=== PATIENT | female | born 1995 | race Caucasian/White ===

== ENCOUNTER 2019-02-13 11:25 | Emergency (ER) | payer OTHER ==
[2019-02-13 12:11] VITALS: BP 108/70; PULSE 89; TEMP 98.5; BMI 23.5
--- NOTE | 2019-02-13 12:12 | PDOC ---
Rapid Medical Evaluation Time Seen by Provider: 02/13/19 12:06 Medical Evaluation: Allergies Allergy/AdvReac Type Severity Reaction Status Date / Time No Known Drug Allergies Allergy Verified 06/15/16 17:21 NUTS Allergy Swelling Uncoded 06/15/16 15:37 02/13/19 12:06 I have performed a brief in-person evaluation of this patient. The patient presents with a chief complaint of: epigastric pain since this morning, 4 episodes of vomiting Pertinent physical exam findings: NAD, mild tenderness to epigastrum I have ordered the following: labs, urine The patient will proceed to the ED for further evaluation.
--- NOTE | 2019-02-13 13:35 | PDOC ---
History of Present Illness - General Chief Complaint: Pain, Acute Stated Complaint: ABD PAIN/VOMITING Time Seen by Provider: 02/13/19 12:06 History Source: Patient Exam Limitations: No Limitations - History of Present Illness Initial Comments: 02/13/19 13:28 24 yo female pmh of IBS, gastritis, ovarian cysts and questionable hx of Crohns (states GI told her she may have beginning stages of Crohns after EGD and colonoscopy in [facility]) presents to the ED with epigastric pain radiating to the back and 4 episodes of non bloody non bilious vomiting. Pt states s/s started suddenly this am, severe, intermittent, described as sharp and stabbing with pain straight through to her back. Pt tried nexium at home without improvement. Pt also admits to bilateral lower quadrant abdominal pain and loose stools without blood. Denies recent travel, eating new foods, sick contacts, F/C, changes in urinary habits, CP, SOB. Last menstrual period 01/25, (IUD in place) no hx of STDs, denies vaginal discharge. Past History - Past Medical History Allergies/Adverse Reactions: Allergies Allergy/AdvReac Type Severity Reaction Status Date / Time No Known Drug Allergies Allergy Verified 06/15/16 17:21 NUTS Allergy Swelling Uncoded 06/15/16 15:37 Home Medications: Ambulatory Orders Levofloxacin [Levaquin] 500 mg PO DAILY #10 tablet 06/15/16 Anemia: Yes Asthma: Yes COPD: No GI Disorders: Yes (GASTRITIS) - Immunization History Immunization Up to Date: No - Suicide/Smoking/Psychosocial Hx Smoking History: Never smoked Hx Alcohol Use: No Drug/Substance Use Hx: No Substance Use Type: None Review of Systems - Review of Systems Constitutional: No: Chills, Fever, Weakness Respiratory: No: Shortness of Breath Cardiac (ROS): No: Chest Pain, Edema ABD/GI: Yes: Diarrhea, Nausea, Vomiting, Abdominal cramping, Other (epigastric pain radiating to her back). No: Constipated *Physical Exam - Vital Signs Last Vital Signs Temp Pulse Resp BP Pulse Ox 98.5 F 89 18 108/70 99 02/13/19 12:06 02/13/19 12:06 02/13/19 12:06 02/13/19 12:06 02/13/19 12:06 ED Treatment Course - LABORATORY CBC & Chemistry Diagram: 02/13/19 14:23 02/13/19 14:23 *DC/Admit/Observation/Transfer Diagnosis at time of Disposition: Abdominal pain - Discharge Dispostion Disposition: AGAINST MEDICAL ADVICE Condition at time of disposition: Stable Decision to Admit order: No - Referrals - Patient Instructions Printed Discharge Instructions: DI for Abdominal Pain-Adult Additional Instructions: Please see your Primary Doctor tomorrow. This can potentially be early signs of an infection including but not limited to appendicitis. Return to the ER for new or concerning symptoms including but not limited to: high fevers, severe abdominal pain, continued nausea. Thank you - Post Discharge Activity
[2019-02-13] MEDS ORDERED: FAMOTIDINE 20 MG/50 ML IVPB 20 MG/50 ML MG IVPB ONE ×2 (13:36→13:50)
[2019-02-13] MEDS ORDERED: ONDANSETRON 4 MG/2 ML VIAL IVPUSH ONE (13:36)
[2019-02-13] MEDS ORDERED: SODIUM CHLORIDE 1,000 ML IV STA (13:36)
[2019-02-13] MEDS ORDERED: ONDANSETRON 4 MG/2 ML VIAL ONE (13:50)
[2019-02-13 14:31] LABS: BASO % 0.4 % (0-2.0); EOS % 9.2 % (0-4.5); HEMATOCRIT 40.9 % (32.4-45.2); HEMOGLOBIN 12.9 GM/dL (10.7-15.3); LYMPH % 16.9 % (8-40); MCH 23.8 pg (25.7-33.7); MCHC 31.6 g/dl (32.0-36.0); MEAN CELL VOLUME 75.4 fl (80-96); MEAN PLT VOLUME 9.1 fl (7.5-11.1); MONO % 6.2 % (3.8-10.2); NEUT % 67.3 % (42.8-82.8); PLATELET COUNT 260 K/MM3 (134-434); RBC 5.42 M/mm3 (3.60-5.2); RDW 16.2 % (11.6-15.6); WHITE BLOOD COUNT 16.7 K/mm3 (4.0-10.0)
[2019-02-13 14:34] LABS: URINE APPEARANCE CLOUDY; URINE BILIRUBIN NEGATIVE (NEGATIVE); URINE COLOR YELLOW; URINE GLUCOSE (UA) NEGATIVE (NEGATIVE); URINE KETONE NEGATIVE (NEGATIVE); URINE LEUK ESTERASE NEGATIVE (NEGATIVE); URINE NITRITE NEGATIVE (NEGATIVE); URINE PROTEIN NEGATIVE (NEGATIVE); URINE UROBILINOGEN 0.2 mg/dL (0.2-1.0)
[2019-02-13 14:35] LABS: HCG,QUALITATIVE URINE Negative
--- NOTE | 2019-02-13 14:42 | PDOC ---
Documentation entered by Neil Newton SCRIBE, acting as scribe for Nico Nevarez MD. Nico Nevarez MD: This documentation has been prepared by the Lamar dewitt Nirvannie, SCRIBE, under my direction and personally reviewed by me in its entirety. I confirm that the documentation accurately reflects all work, treatment, procedures, and medical decision making performed by me. Attending Attestation - Resident Resident Name: Rivera Madrigal - ED Attending Attestation I have performed the following: I have examined & evaluated the patient, The case was reviewed & discussed with the resident, I agree w/resident's findings & plan, Exceptions are as noted - HPI HPI: 02/13/19 13:49 The patient is a 24 year old female, with a significant past medical history of IBS, gastritis, ovarian cysts, and ?Crohns, who presents to the emergency department with, 1 day of sharp, stabbing epigastric pain with radiating to the back and associated NBNB emesis. Patient notes taking Nexium, without relief, prompting her arrival to the ED. Secondary to her epigastric pain she endorses blt LQ abdominal pain and loose stools. She denies recent fevers, chills, headache or dizziness. She denies recent dysuria, frequency, urgency or hematuria. She denies recent chest pain or shortness of breath. Allergies: Nuts Past surgical history: None reported. Social history: Nonsmoker. Denies EtOH use and recreational drug use. GI: [place] - Physicial Exam PE: 02/13/19 13:50 GENERAL: The patient is awake, alert, and fully oriented, Nontoxic - in no acute distress. HEAD: Normocephalic, atraumatic. EYES: extraocular movements intact, sclera anicteric, conjunctiva clear. ENT: Normal voice, Moist mucous membranes. NECK: Normal range of motion, supple LUNGS: Breath sounds equal, clear to auscultation bilaterally. No wheezes, no rhonchi, no rales. HEART: Regular rate and rhythm, without murmur, rub or gallop. ABDOMEN: Soft, nontender, No guarding, no rebound. No CVA tenderness EXTREMITIES: Normal range of motion, no edema. No cyanosis. No erythema, or tenderness. NEUROLOGICAL: No facial assymetry, Normal speech, PSYCH: Normal mood, normal affect. SKIN: Warm, Dry, normal turgor - Medical Decision Making 02/13/19 13:45 24y hx of ibs present with epigastric pain that radiates to the back assocated with 4 episodes of nbnb vomiting, pain is sharp, stabbing in nature. tried nexium wihtoutimprovement. admits to b/l lower abdominal pain associated with loose stool. no recent travel, known sick contacts, dysuria, frequency, vag discharge, vag bleeding. LMP January 25 ddx - gastritis, pancreatitis, AGE, will ck labs, ua, u hcg fluids, zofran will reasess
[2019-02-13 14:47] LABS: ALBUMIN 4.1 g/dl (3.4-5.0); BILIRUBIN,TOTAL 0.5 mg/dL (0.2-1); CALCIUM 9.4 mg/dL (8.5-10.1); CREATININE 0.6 mg/dL (0.55-1.3); TOT PROT 7.9 g/dl (6.4-8.2)
== END 2019-02-13 16:08 | disposition left against medical advice (07) ==
LOC: JER 11:25
PROC: 3E0337Z Introduction of Electrolytic and Water Balance Substance into Peripheral Vein, Percutaneous Approach (ICD-10-PCS; principal; 2019-02-13)
PROC: 3E033GC Introduction of Other Therapeutic Substance into Peripheral Vein, Percutaneous Approach (ICD-10-PCS; 2019-02-13)
PROC: 3E033GC Introduction of Other Therapeutic Substance into Peripheral Vein, Percutaneous Approach (ICD-10-PCS; 2019-02-13)
DX: R10.9 Unspecified abdominal pain (principal)
CPT/HCPCS: 36415; 80053; 81003; 83690; 84703; 85025; 87491; 87591; 99283-25; J7030

== ENCOUNTER 2019-08-14 16:02 | Emergency (ER) | payer OTHER ==
--- NOTE | 2019-08-14 16:10 | PDOC ---
Rapid Medical Evaluation Time Seen by Provider: 08/14/19 16:09 Medical Evaluation: Allergies Allergy/AdvReac Type Severity Reaction Status Date / Time No Known Drug Allergies Allergy Verified 06/15/16 17:21 NUTS Allergy Swelling Uncoded 06/15/16 15:37 08/14/19 16:13 I have performed a brief in-person evaluation of this patient. The patient presents with a chief complaint of: needlestick at work Pertinent physical exam findings:stable and in NAD, non-focal I have ordered the following:labs The patient will proceed to the ED for further evaluation. Discharge Disposition - Referrals Referrals: Sylvester Castaneda MD [Primary Care Provider] - - Patient Instructions - Post Discharge Activity
[2019-08-14 16:12] VITALS: BP 107/61; PULSE 80; TEMP 98; BMI 25.0
[2019-08-14 17:59] LABS: BASO % 0.4 % (0-2.0); EOS % 9.5 % (0-4.5); HEMATOCRIT 36.9 % (32.4-45.2); HEMOGLOBIN 12.2 GM/dL (10.7-15.3); LYMPH % 27.5 % (8-40); MCH 24.7 pg (25.7-33.7); MEAN CELL VOLUME 74.9 fl (80-96); MEAN PLT VOLUME 9.2 fl (7.5-11.1); MONO % 7.3 % (3.8-10.2); NEUT % 55.3 % (42.8-82.8); PLATELET COUNT 322 K/MM3 (134-434); RBC 4.93 M/mm3 (3.60-5.2); RDW 16.2 % (11.6-15.6); WHITE BLOOD COUNT 9.3 K/mm3 (4.0-10.0)
[2019-08-14 18:42] LABS: ALBUMIN 3.9 g/dl (3.4-5.0); BILIRUBIN,TOTAL 0.6 mg/dL (0.2-1); BLOOD UREA NITROGEN 10.2 mg/dL (7-18); CALCIUM 9.3 mg/dL (8.5-10.1); CREATININE 0.6 mg/dL (0.55-1.3); PHOSPHOROUS 4.1 mg/dL (2.5-4.9); POTASSIUM 3.8 mmol/L (3.5-5.1); TOT PROT 7.1 g/dl (6.4-8.2)
[2019-08-14] MEDS ORDERED: HIV POST EXPOSURE PROPHYLAXIS KIT NR ONE (19:04)
[2019-08-14] MEDS ORDERED: HIV POST EXPOSURE PROPHYLAXIS KIT PO ONE (19:08)
--- NOTE | 2019-08-14 19:11 | PDOC ---
History of Present Illness - General Chief Complaint: Non EmpBld/Body Flud Exposure Stated Complaint: GOT STABBED W/ A NEEDLE Time Seen by Provider: 08/14/19 16:09 History Source: Patient Exam Limitations: No Limitations Past History - Past Medical History Allergies/Adverse Reactions: Allergies Allergy/AdvReac Type Severity Reaction Status Date / Time No Known Drug Allergies Allergy Verified 08/14/19 16:12 NUTS Allergy Swelling Uncoded 08/14/19 16:12 Home Medications: Ambulatory Orders Raltegravir [Isentress] 400 mg PO BID #46 tab 08/14/19 Anemia: Yes Asthma: Yes COPD: No GI Disorders: Yes (GASTRITIS) - Immunization History Immunization Up to Date: No - Psycho Social/Smoking Cessation Hx Smoking History: Current some day smoker Number of Cigarettes Smoked Daily: 1 Information on smoking cessation initiated: No Hx Alcohol Use: No Drug/Substance Use Hx: No Substance Use Type: None *Physical Exam - Vital Signs Last Vital Signs Temp Pulse Resp BP Pulse Ox 98 F 80 18 107/61 99 08/14/19 16:09 08/14/19 16:09 08/14/19 16:09 08/14/19 16:09 08/14/19 16:09 - Physical Exam General Appearance: No: Apparent Distress Extremity: positive: Other (no open wound or bleeding of R index finger) Integumentary: positive: Normal Color. negative: Swelling, Ecchymosis, Bruising Neurologic: positive: Alert ED Treatment Course - LABORATORY CBC & Chemistry Diagram: 08/14/19 16:30 08/14/19 16:34 - ADDITIONAL ORDERS Additional order review: Laboratory Results 08/14/19 16:34 Sodium 141 Potassium 3.8 Chloride 110 H Carbon Dioxide 24 Anion Gap 7 L BUN 10.2 Creatinine 0.6 Est GFR (CKD-EPI)AfAm 147.86 Est GFR (CKD-EPI)NonAf 127.58 Random Glucose 104 Uric Acid 4.0 Calcium 9.3 Phosphorus 4.1 Total Bilirubin 0.6 GGT 15 AST 17 ALT 19 Alkaline Phosphatase 71 LD Total 162 Total Protein 7.1 Albumin 3.9 Triglycerides 52 Cholesterol 145 08/14/19 16:30 RBC 4.93 MCV 74.9 L MCHC 33.0 RDW 16.2 H MPV 9.2 Neutrophils % 55.3 Lymphocytes % 27.5 D Monocytes % 7.3 Eosinophils % 9.5 H Basophils % 0.4 Medical Decision Making - Medical Decision Making 24 y/o F hx of IBS, asthma, anemia presents s/p needlestick today. 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 Patient got her Hep B vaccine. Patient did not ask the source patient about his medical history but had looked in his chart and found no history of HIV. Source patient was not tested for HIV. Denies other complaints. PEP labs sent HIV negative Patient agrees with starting PEP treatment 08/14/19 19:12 Discharge - Discharge Information Problems reviewed: Yes Clinical Impression/Diagnosis: Needle stick injury Condition: Stable Disposition: HOME - Admission No - Additional Discharge Information Prescriptions: Raltegravir [Isentress] 400 mg PO BID #46 tab Prescription Drug Monitoring Program (I-STOP) results: I-STOP not reviewed - Follow up/Referral Referrals: Sylvester Castaneda MD [Primary Care Provider] - David Antunez NP [Nurse Practitioner] - 2 Days Tyler Avina MD [Staff Physician] - 2 Days - Patient Discharge Instructions Patient Printed Discharge Instructions: How to Handle Body Fluid Exposure -- Healthcare Worker Additional Instructions: Thank you for choosing [facility]. It was a pleasure taking care of you. Please take the medications as prescribed You were referred to [facility] - please call tomorrow to set-up follow-up appointment Return to the Emergency Department if your symptoms worsen or persist or have other concerning symptoms. - Post Discharge Activity
== END 2019-08-14 19:25 | disposition home or self-care (01) ==
LOC: JERFT 16:02
DX: S61.230A Puncture wound without foreign body of right index finger without damage to nail, initial encounter (principal); W46.1XXA Contact with contaminated hypodermic needle, initial encounter; Y93.89 Activity, other specified; Y92.531 Health care provider office as the place of occurrence of the external cause; Y99.0 Civilian activity done for income or pay
CPT/HCPCS: 36415; 80053; 82465; 82977; 83615; 84100; 84478; 84550; 85025; 86317; 86704; 86706; 86803; 87340; 87389; 99282-25

== ENCOUNTER 2022-05-30 17:53 | Emergency (ER) | payer OTHER ==
[2022-05-30 18:11] VITALS: BP 111/72; PULSE 89; RESP 20; TEMP 98.2; BMI 24.5
[2022-05-30] MEDS ORDERED: ALBUTEROL SO4 2.5/IPRATROPIUM 0.5 INH SOL 3 ML VIAL.NEB. NEB ONE (19:53)
[2022-05-30] MEDS ORDERED: ACETAMINOPHEN 500 MG TABLET (FP) PO ONE (19:53)
[2022-05-30] MEDS ORDERED: predniSONE 20 MG TABLET (UD) PO ONE (19:54)
[2022-05-30] MEDS ORDERED: ACETAMINOPHEN 500 MG TABLET (FP) ONE (20:02)
[2022-05-30] MEDS ORDERED: predniSONE 20 MG TABLET (UD) ONE (20:02)
== END 2022-05-30 21:15 | disposition home or self-care (01) ==
LOC: JER 17:53
PROC: 3E0F7GC Introduction of Other Therapeutic Substance into Respiratory Tract, Via Natural or Artificial Opening (ICD-10-PCS; principal; 2022-05-30)
DX: J45.909 Unspecified asthma, uncomplicated (principal)
CPT/HCPCS: 0241U-QW; 71046-TC-FY; 99284-25

== ENCOUNTER 2022-12-06 18:26 | Emergency (ER) | payer OTHER ==
[2022-12-06 19:06] VITALS: BP 115/79; PULSE 80; RESP 18; TEMP 98.1; BMI 21.4
[2022-12-06] MEDS ORDERED: ALBUTEROL SO4 2.5/IPRATROPIUM 0.5 INH SOL 3 ML VIAL.NEB. NEB ONE ×2 (20:52→21:04)
[2022-12-06 21:30] LABS: THROAT:GRP A STREP NOT DETECTED (NOTDETECTED)
[2022-12-06] MEDS ORDERED: ACETAMINOPHEN 500 MG TABLET (FP) PO ONE (21:57)
[2022-12-06] MEDS ORDERED: ACETAMINOPHEN 500 MG TABLET (FP) ONE (22:01)
== END 2022-12-06 22:29 | disposition home or self-care (01) ==
LOC: JERFT 18:26 → JER 18:26 → JERFT 22:29
PROC: 3E0F7GC Introduction of Other Therapeutic Substance into Respiratory Tract, Via Natural or Artificial Opening (ICD-10-PCS; principal; 2022-12-06)
DX: J45.21 Mild intermittent asthma with (acute) exacerbation (principal); Z20.822 Contact with and (suspected) exposure to COVID-19
CPT/HCPCS: 0241U-QW; 71046-TC-FY; 87651; 99284-25

== ENCOUNTER 2024-11-10 09:07 | Emergency (ER) | payer OTHER ==
[2024-11-10 09:20] VITALS: BP 108/71; PULSE 93; RESP 20; TEMP 97.7; BMI 23.9
[2024-11-10] MEDS ORDERED: ONDANSETRON *ODT* 4 MG TABLET ONE ×2 (10:03→11:48)
[2024-11-10] MEDS: ONDANSETRON *ODT* 4 MG TABLET SL ONE ×2 (10:09→12:01)
[2024-11-10] MEDS ORDERED: FAMOTIDINE 20 MG TABLET ONE (10:27)
[2024-11-10] MEDS ORDERED: ACETAMINOPHEN 500 MG TABLET (FP) ONE ×2 (10:27→10:30)
[2024-11-10] MEDS: FAMOTIDINE 10 MG TABLET PO ONE (10:35)
[2024-11-10] MEDS: ACETAMINOPHEN 325 MG TABLET (FP) PO ONE (10:35)
[2024-11-10] MEDS ORDERED: METOCLOPRAMIDE HCL INJECTION 10 MG/2 ML VIAL ONE (12:08)
[2024-11-10] MEDS ORDERED: KETOROLAC TROMETHAMINE 15 MG/ML VIAL ONE (12:08)
[2024-11-10] MEDS: KETOROLAC TROMETHAMINE 30 MG/1 ML VIAL IVPUSH ONE (12:18)
[2024-11-10] MEDS: METOCLOPRAMIDE HCL INJECTION 10 MG/2 ML VIAL IVPB ONE (12:18)
[2024-11-10] MEDS: LACTATED RINGERS SOLUTION 1000 ML INFUS.BAG IV ONE (12:28)
[2024-11-10] MEDS ORDERED: MAG HYDROX/AL HYDROX/SIMETH 30 ML UNIT-DOSE CUP ONE (13:48)
[2024-11-10] MEDS: MAG HYDROX/AL HYDROX/SIMETH 30 ML UNIT-DOSE CUP PO ONE (13:51)
[2024-11-10 15:08] LABS: BASO % 0.1 % (0-2.0); EOS % 4.1 % (0-4.5); HEMATOCRIT 39.8 % (32.4-45.2); LYMPH % 8.2 % (8-40); MCH 24.6 pg (25.7-33.7); MCHC 32.6 g/dl (32.0-36.0); MEAN CELL VOLUME 75.5 fl (80-96); MEAN PLT VOLUME 7.5 fl (7.5-11.1); NEUT % 84.6 % (42.8-82.8); PLATELET COUNT 314 10^3/uL (134-434); RBC 5.28 M/mm3 (3.60-5.2); RDW 15.6 % (11.6-15.6); WHITE BLOOD COUNT 7.9 K/mm3 (4.0-10.0)
[2024-11-10] MEDS ORDERED: PROCHLORPERAZINE INJECTION 10 MG/2 ML VIAL ONE (15:27)
[2024-11-10 15:37] LABS: POTASSIUM 4.3 mmol/L (3.5-5.1)
[2024-11-10] MEDS: PROCHLORPERAZINE INJECTION 10 MG/2 ML VIAL IVPB ONE (15:38)
[2024-11-10 15:40] LABS: ALBUMIN 3.6 g/dl (3.4-5.0); BLOOD UREA NITROGEN 12.6 mg/dL (7-18); CALCIUM 8.7 mg/dL (8.5-10.1)
[2024-11-10 15:43] LABS: CREATININE 0.5 mg/dL (0.55-1.3)
[2024-11-10] MEDS ORDERED: morphine SULFATE 4 MG/ML VIAL ONE (15:44)
[2024-11-10 15:45] LABS: BILIRUBIN,TOTAL 0.7 mg/dL (0.2-1); TOT PROT 6.9 g/dl (6.4-8.2)
[2024-11-10] MEDS: morphine CARPU-JECT 4 MG/1 ML DISP.SYRIN IVPUSH ONE (15:56)
== END 2024-11-10 18:01 | disposition home or self-care (01) ==
LOC: JER 09:07
PROC: 3E0333Z Introduction of Anti-inflammatory into Peripheral Vein, Percutaneous Approach (ICD-10-PCS; principal; 2024-11-10)
PROC: 3E033GC Introduction of Other Therapeutic Substance into Peripheral Vein, Percutaneous Approach (ICD-10-PCS; 2024-11-10)
PROC: 3E033NZ Introduction of Analgesics, Hypnotics, Sedatives into Peripheral Vein, Percutaneous Approach (ICD-10-PCS; 2024-11-10)
PROC: 3E033GC Introduction of Other Therapeutic Substance into Peripheral Vein, Percutaneous Approach (ICD-10-PCS; 2024-11-10)
DX: K52.9 Noninfective gastroenteritis and colitis, unspecified (principal); R10.13 Epigastric pain; R11.2 Nausea with vomiting, unspecified
CPT/HCPCS: 36415; 76705-TC; 80053; 83690; 84703; 85025; 93005; 93010; 99285-25; Q0162